=== PATIENT | male | born 1995 | race Two or more races ===

== ENCOUNTER → 2017-09-02 | Outpatient (CLI) | payer BC ==
[~2017-09-02] MED LIST: GADOBUTROL 10 ML VIAL IVP ONE
== END ==
LOC: FIMAGING 07:02
PROVIDERS: ATTEND Psychiatry & Neurology Neurology
DX: R55 Syncope and collapse (principal)
CPT/HCPCS: A9585

== ENCOUNTER → 2017-09-06 | Outpatient (CLI) | payer BC ==
--- NOTE | 2017-09-08 06:12 | CPEEG ---
[f rep st] ELECTROENCEPHALOGRAM DATE OF STUDY: September 06, 2017 INTRODUCTION: This is a multichannel EEG using the standard international 10- 20 system of disc electrode placement. A single EKG channel is monitored for the duration of the study. This study is undertaken for the evaluation of syncope with convulsive features. No pertinent medications. The duration of the recording is 29 minutes. DESCRIPTION OF RECORDING: In the maximal alert state, the patient achieves a posterior dominant rhythm of symmetric 11 Hz alpha activity that attenuated with eye opening. Activating measures including photic stimulation and hyperventilation were performed. Photic stimulation resulted in a driving response. Hyperventilation failed to activate the tracing. A very brief period of drowsiness was noted as marked by slow roving eye movements, waning of the background, and anterior spread of alpha. No sleep architecture was observed. The EKG demonstrated normal sinus rhythm. INTERPRETATION: This is a normal awake and briefly drowsy EEG. CLINICAL CORRELATION: No focal lateralizing epileptiform activity was noted. /[id number]/MODL MTDD
== END ==
LOC: EDBD → FCPNEURO 14:53
PROVIDERS: ATTEND Psychiatry & Neurology Neurology
DX: R55 Syncope and collapse (principal)

== ENCOUNTER 2017-09-22 11:47 | Day surgery (SDC) | payer BC ==
[2017-09-22] MEDS ORDERED: LIDOCAINE 1% 300 MG/30 ML SDV SC ONE (11:54)
--- NOTE | 2017-09-22 13:02 | PDHPUP ---
History & Physical Update H&P update statement: This history and physical update is based on an assessment of the patient which was completed after admission or registration (within 24 hours), but prior to the surgery/procedure. H&P update: H&P reviewed & patient examined, no change in patient's condition since H&P completed
--- NOTE | 2017-09-23 18:29 | EPPROC ---
Electrophysiology Procedure Note: Procedure: Parts were prepared and draped. LA given. Incision was placed. Using usual technique, LINQ was injected. Pt had significant asystolic episodes upto 7 sec during the implant. Hemostasis was achieved. [place] were placed. Dry sterile dressing was placed. Patient left the CVC in stable condition. Conclusion: Successful LINQ implant.
== END 2017-09-22 13:00 | disposition home or self-care (01) ==
LOC: FCATH 11:47
PROVIDERS: ATTEND Internal Medicine Cardiovascular Disease
PROC: 0JH602Z Insertion of Monitoring Device into Chest Subcutaneous Tissue and Fascia, Open Approach (ICD-10-PCS; principal; 2017-09-22)
DX: R55 Syncope and collapse (principal); R00.2 Palpitations
CPT/HCPCS: C1764